=== PATIENT | female | born 1955 | race Caucasian/White ===

== ENCOUNTER 2018-11-08 06:41 | Observation (INO) | payer OTHER ==
--- NOTE | 2018-11-08 07:43 | RAD ---
Portable chest: HISTORY: Chest pain COMPARISON: none FINDINGS: Lung morgan are clear. Heart and mediastinum appear unremarkable. Vascularity is normal. Visualized osseous structures unremarkable. IMPRESSION: No acute finding
[2018-11-08 07:55] LABS: #Basophils 0.1 thou/uL (0.0-0.2); #Lymphocytes 1.4 thou/uL (1.20-3.40); #Monocytes 0.5 thou/uL (0.11-0.59); #Neutrophils 7.1 thou/uL (1.40-6.50); %Basophils 0.7 % (0.0-1.0); %Eosinophils 0.3 % (0.0-10.0); %Lymphocytes 15.1 % (21.0-51.0); %Monocytes 5.5 % (0.0-10.0); %Neutrophils 78.5 % (42.0-75.0); Hemoglobin 13.3 g/dL (12.0-16.0); Mean Corpuscular Hemoglobin 30.3 pg (27.0-31.0); Mean Corpuscular Volume 91.9 fL (78.0-98.0); Mean Platelet Volume 8.7 fL (7.4-10.4); Platelet Count 189 thou/uL (130-400); RBC Distribution Width 11.6 % (11.5-14.5); Red Blood Cell (RBC) Count 4.39 mill/uL (4.20-5.40)
[2018-11-08] MEDS ORDERED: Morphine 4 MG/ML VIAL ONE (08:08)
[2018-11-08] MEDS ORDERED: Ondansetron PF 4 MG/2 ML Vial ONE ×2 (08:09→18:56)
[2018-11-08 08:17] LABS: ALT (SGPT) 13 U/L (8-55); AST (SGOT) 17 U/L (5-34); Albumin 4.5 g/dL (3.4-4.8); Alkaline Phosphatase 79 U/L (40-150); Anion Gap 15 mmol/L (10-20); BUN (Urea Nitrogen) 18 mg/dL (9.8-20.1); Bilirubin, Total 0.5 mg/dL (0.2-1.2); CK (CPK) 59 U/L (29-168); Calc. Creatinine Clearance 0 mL/min (70-130); Calcium 10.4 mg/dL (7.8-10.44); Carbon Dioxide 24 mmol/L (23-31); Chloride 104 mmol/L (98-107); Estimated GFR-MDRD 61; Globulin 2.8 g/dL (2.4-3.5); Glucose 123 mg/dL (80-115); Lipase 11 U/L (8-78); Potassium 3.8 mmol/L (3.5-5.1); Protein, Total 7.3 g/dL (6.0-8.3); Sodium 139 mmol/L (136-145)
--- NOTE | 2018-11-08 08:55 | ULT ---
EXAM: US Gallbladder RUQ CLINICAL HISTORY: Abdominal pain. Chest pain. Back pain.. COMPARISON: None. FINDINGS: Pancreas: Obscured by bowel gas Liver:Anechoic focus with septation involving the left hepatic lobe measuring 9.6 x 7.1 x 8.0 cm. Add itional smaller septated anechoic focus measuring 2.0 x 1.0 x 1.5 cm, in the left hepatic lobe. Septated cysts are favored. No solid masses in the liver. Contour of the hepatic margins maintained. Right hepatic lobe measures 12.7 cm Gallbladder: No evidence of gallbladder wall thickening or pericholecystic fluid. Small amount of slu dge is noted. No evidence of cholelithiasis. Gallbladder measures 11.4 cm in maximum dimension Garcia's sign:Negative Bile ducts: Common bile duct diameter is 0.4 cm Portal vein is patent. Appropriate directional flow Right kidney: No hydronephrosis Right kidney measuring 9.6 x 4.6 x 4.4 cm in length. IMPRESSION: 1. Distended gallbladder without sonographic evidence of cholelithiasis or cholecystitis. 2. Complex, septated cyst in the left hepatic lobe.
[2018-11-08] MEDS ORDERED: Fentanyl 100 MCG/2 ML VIAL ONE (09:17)
[2018-11-08] MEDS ORDERED: Morphine 2 MG/ML SYRINGE ONE (15:10)
--- NOTE | 2018-11-08 16:21 | NM ---
Radionucleotide hepatobiliary scan HISTORY: Right upper quadrant pain. Distended gallbladder. FINDINGS: Early images show uptake within the liver with the exception of the gallbladder fossa. Ther e is increase in uptake surrounding the gallbladder fossa along the inferior margin. This is consistent with a round sign of inflammation. At 1 hour, patient was given 2 mg morphine IV. Imaging was carried for another 90 minutes. Uptake is never seen within the gallbladder. Uptake is first seen within the small bowel at 10 minutes. IMPRESSION: Cystic duct obstruction with findings suggestive of acute cholecystitis.
[2018-11-08 16:59] LABS: Troponin I Less than 0.010 ng/mL (< 0.028)
[2018-11-08] MEDS ORDERED: Dextrose 5% in Water 1,000 ML IV PRN (17:56)
[2018-11-08] MEDS ORDERED: Promethazine HCl 25 MG/ML VIAL IM PRN (17:56)
[2018-11-08] MEDS ORDERED: Dextrose 50% Abboject 50 ML SYRINGE SLOW IVP PRN (17:56)
[2018-11-08] MEDS ORDERED: Calcium Carbonate 500 MG ChewTAB PO PRN (17:56)
[2018-11-08] MEDS ORDERED: Mag-Al 1200 mg/1200 mg/30 ML UDCUP PO PRN (17:56)
[2018-11-08] MEDS ORDERED: Ondansetron PF 4 MG/2 ML Vial IVP PRN (17:56)
[2018-11-08] MEDS ORDERED: hydrALAZINE 20 MG/ML VIAL SLOW IVP PRN (17:56)
[2018-11-08] MEDS ORDERED: Piperacillin/Tazobactam 3.375 GM in Sodium Chloride 0.9% 100 ML IVPB SCH (18:00)
[2018-11-08] MEDS ORDERED: Ketorolac Tromethamine 30 MG/ML VIAL ONE (18:55)
[2018-11-08] MEDS ORDERED: Promethazine HCl 25 MG/ML VIAL ONE (18:55)
[2018-11-08] MEDS: Ketorolac Tromethamine 30 MG/ML VIAL IVP SCH (18:57)
[2018-11-08] MEDS: Acetaminophen 1,000 MG in Premix Bag 1 BAG IVPB SCH (18:59)
--- NOTE | 2018-11-08 19:06 | HP ---
REQUESTING PHYSICIAN: Dr. Denney. ATTENDING SURGEON: Sincere Montes DO HISTORY OF PRESENT ILLNESS: The patient is a 63-year-old woman, who presented to the emergency department after an acute onset of right upper quadrant pain. The patient reports that she has had similar episodes approximately four prior to this that have become longer in duration and more intense. The patient was seen by Cardiology after one episode to rule out a cardiac etiology, which was negative. Today, she presented again after having eaten and having significant right upper quadrant pain. She denies any vomiting or diarrhea, but did have some nausea and denies fevers or chills. The patient underwent evaluation in the emergency department, had essentially unremarkable right upper quadrant ultrasound, underwent HIDA scan that was consistent with acute cholecystitis at which time we were asked to admit the patient and evaluate her for cholecystectomy. ALLERGIES: ASPIRIN AND PENICILLIN. CURRENT MEDICATIONS: 1. Benicar. 2. Pravastatin. PAST MEDICAL HISTORY: Davis's palsy, hypercholesterolemia, hypertension. PAST SURGICAL HISTORY: , uterine ablation. SOCIAL HISTORY: The patient lives at home with her spouse. Denies drug, tobacco, or alcohol use. FAMILY MEDICAL HISTORY: Renal disease and renal carcinoma. REVIEW OF SYMPTOMS: 10-point review of systems is negative as otherwise stated. PHYSICAL EXAMINATION: VITAL SIGNS: Blood pressure 121/87, heart rate 91, respirations 20, oxygen saturation 93% on room air, and temperature is 99.2. GENERAL: The patient is resting comfortably in bed. She has just been given pain medication. She is awake, alert, and oriented x3. HEENT. Head: Normocephalic atraumatic. Eyes, extraocular motion intact, no scleral icterus. PERRLA bilaterally. Ears are atraumatic without discharge. Nose atraumatic without discharge. Oropharynx is clear. NECK: Nontender. Trachea is midline. No JVD. No lymphadenopathy is noted. LUNGS: Clear to auscultation with good inspiratory and expiratory effort. HEART: Regular rate and rhythm. ABDOMEN: Soft, flat with tenderness to palpation to the right upper quadrant and a positive Garcia sign. EXTREMITIES: Neurovascularly intact x4. BACK: Atraumatic and nontender. No CVA tenderness. LABORATORY EXAM: White blood cell count 9.0, hemoglobin 13.3, hematocrit 40.3, platelets 189. Sodium 139, potassium 3.8, chloride 104, CO2 of 24, BUN 18, creatinine 0.94, glucose 123, total bilirubin 0.5, AST 17, ALT 13, alkaline phosphatase 79, CK 59, troponin with repeat both less than 0.010. Lipase 11. RADIOGRAPHIC EXAM: AP chest x-ray shows lung morgan are clear. Heart, mediastinum appear unremarkable. Vascularity is normal. No acute finding. Abdominal ultrasound shows a distended gallbladder without sonographic evidence of cholelithiasis or cholecystitis. Incidental finding of a complex septated cyst in the left hepatic lobe. Common bile duct measures 0.4 cm. The gallbladder's maximum dimension is 11.4 cm. There is no evidence of gallbladder wall thickening or pericholecystic fluid. HIDA scan shows cystic duct obstruction with findings suggestive of acute cholecystitis. ASSESSMENT AND PLAN: 1. Abdominal pain. 2. Acalculous cholecystitis. Plan will be to admit the patient to the surgical floor. We will make her n.p.o. after midnight, IV pain control, pulmonary toilet, gastritis and mechanical VTE prophylaxis with a plan to take her to the operating room for laparoscopic cholecystectomy tomorrow. The evaluation, examination, laboratory, and radiographic findings were discussed with Dr. Montes prior to this dictation. Job ID: [id number]
[2018-11-08] MEDS ORDERED: Famotidine 20 MG TAB PO SCH (21:00)
[2018-11-08] MEDS: Lactated Ringer's 1,000 ML IV SCH (21:04)
[2018-11-08] MEDS: Famotidine/PF 20 mg/2ml Vial SLOW IVP SCH (21:05)
[2018-11-09] MEDS: Acetaminophen 1,000 MG in Premix Bag 1 BAG IVPB SCH ×3 (02:02→13:45)
[2018-11-09] MEDS: Ketorolac Tromethamine 30 MG/ML VIAL IVP SCH ×2 (02:02→07:54)
[2018-11-09 03:34] VITALS: BMI 25.6
[2018-11-09] MEDS: Lactated Ringer's 1,000 ML IV SCH ×2 (05:37→12:07)
[2018-11-09 06:37] LABS: #Eosinphils 0.1 thou/uL (0.0-0.7); #Lymphocytes 2.3 thou/uL (1.20-3.40); #Monocytes 0.9 thou/uL (0.11-0.59); #Neutrophils 4.9 thou/uL (1.40-6.50); %Basophils 0.2 % (0.0-1.0); %Eosinophils 1.1 % (0.0-10.0); %Monocytes 10.9 % (0.0-10.0); %Neutrophils 59.8 % (42.0-75.0); Hemoglobin 12.3 g/dL (12.0-16.0); Mean Corpuscular HGB CONC 30.7 g/dL (32.0-36.0); Mean Corpuscular Hemoglobin 28.8 pg (27.0-31.0); Mean Corpuscular Volume 93.8 fL (78.0-98.0); Mean Platelet Volume 8.5 fL (7.4-10.4); Platelet Count 190 thou/uL (130-400); RBC Distribution Width 11.9 % (11.5-14.5); Red Blood Cell (RBC) Count 4.27 mill/uL (4.20-5.40); White Blood Cell (WBC) Count 8.2 thou/uL (4.8-10.8)
[2018-11-09 07:06] LABS: ALT (SGPT) 18 U/L (8-55); AST (SGOT) 19 U/L (5-34); Alkaline Phosphatase 65 U/L (40-150); Anion Gap 12 mmol/L (10-20); BUN (Urea Nitrogen) 16 mg/dL (9.8-20.1); Bilirubin, Total 1.2 mg/dL (0.2-1.2); Calc. Creatinine Clearance 66 mL/min (70-130); Calcium 9.7 mg/dL (7.8-10.44); Carbon Dioxide 28 mmol/L (23-31); Chloride 103 mmol/L (98-107); Estimated GFR-MDRD 57; Globulin 2.7 g/dL (2.4-3.5); Glucose 96 mg/dL (80-115); Potassium 3.9 mmol/L (3.5-5.1); Protein, Total 6.7 g/dL (6.0-8.3); Sodium 139 mmol/L (136-145)
[2018-11-09] MEDS ORDERED: Ketorolac Tromethamine 30 MG/ML VIAL ONE (07:38)
[2018-11-09] MEDS: Famotidine/PF 20 mg/2ml Vial SLOW IVP SCH (07:55)
[2018-11-09] MEDS ORDERED: cefOXitin 2 GM VIAL ONE (08:10)
[2018-11-09] MEDS ORDERED: Sodium Chloride 0.9% 100 ML ONE (08:10)
[2018-11-09] MEDS ORDERED: Bupivacaine/Epinephrine 0.25% 30 ML VIAL ONE (08:20)
[2018-11-09] MEDS ORDERED: Iothalamate Meglumine 60% 50 ML VIAL FS ONE (08:21)
[2018-11-09] MEDS ORDERED: Fentanyl 100 MCG/2 ML VIAL ONE (08:35)
[2018-11-09] MEDS ORDERED: Scopolamine 1.5 mg/72 hour Patch ONE (08:53)
[2018-11-09] MEDS ORDERED: Promethazine HCl 25 MG/ML VIAL ONE (08:57)
[2018-11-09] MEDS ORDERED: traMADol HCl 50 MG TAB PO PRN ×2 (10:36)
[2018-11-09] MEDS ORDERED: Promethazine HCl 25 MG/ML VIAL SLOW IVP PRN (10:49)
[2018-11-09] MEDS ORDERED: Promethazine HCl 25 MG/ML VIAL IM PRN (10:49)
[2018-11-09] MEDS ORDERED: Ondansetron HCl/PF 4 MG/2 ML Vial IVP PRN (10:49)
[2018-11-09] MEDS ORDERED: Acetaminophen 500 MG TAB PO SCH (12:00)
--- NOTE | 2018-11-09 12:18 | OP ---
DATE OF PROCEDURE: 11/09/2018 PREOPERATIVE DIAGNOSIS: Acute acalculous cholecystitis. POSTOPERATIVE DIAGNOSIS: Acute cholecystitis with cholelithiasis. OPERATION PERFORMED: Laparoscopic cholecystectomy. ANESTHESIA: General endotracheal. ESTIMATED BLOOD LOSS: 25 mL. FLUIDS GIVEN: 800 mL crystalloids. COUNTS: Sponge and instrument counts were verified as correct x2. COMPLICATIONS: None apparent at the time of operation. INDICATIONS FOR OPERATION: A 63-year-old woman presented with recurrent epigastric right upper quadrant abdominal pain. Clinical radiographic examination was consistent with acute acalculous cholecystitis, for which the patient was brought to the operating room for cholecystectomy. FINDINGS: However, consistent with dilated gallbladder in the usual anatomic location partially encased by omental adhesions. The gallbladder itself also contained stones. DESCRIPTION OF PROCEDURE: Informed consent obtained from the patient. She was brought to the operating room and placed in supine position. Following general anesthesia, abdomen was sterilely prepped and draped in usual fashion. Skin below the umbilicus was infiltrated with 0.25% Marcaine with epinephrine. A small curvilinear infraumbilical incision was made using 11-scalpel. Umbilical stalk was grasped with Rocio and elevated. Veress needle was inserted through the incision and placed in the peritoneal cavity through which the abdomen was insufflated with 3 L of CO2 gas. Intra-abdominal pressure noted at 1 mmHg. Following abdominal insufflation, Veress needle was removed and a 5 mm trocar introduced using a Visiport under laparoscopy. Laparoscopy confirmed proper placement of the port, no injuries to underlying structures. Additional laparoscopy revealed the right upper quadrant completely obscured by omental adhesions. Under direct laparoscopy, 12 mm epigastric and two 5 mm right lateral subcostal ports were placed after the overlying skin were infiltrated with 0.25% Marcaine with epinephrine and appropriate incision was made. The patient was placed in a reverse Trendelenburg position, rotated to her left. I introduced a [place] dissector with cautery using this to take down omental adhesions to expose the fundus of the gallbladder. A Prestige grasper was introduced through the right lateral subcostal port grasping the fundus of the gallbladder which was elevated cephalad. Omental adhesions were taken down from remainder of the gallbladder. Second Prestige grasper was introduced through the right medial subcostal port grasping the Bertha pouch, which was retracted laterally. Cystic duct was dissected free from surrounding structures at the triangle of Calot. The duct was divided between clips applying 2 clips proximally, 1 clip at the junction of the cystic duct and gallbladder. Cystic artery was dissected free from surrounding structures and divided between clips in a similar fashion. Gallbladder itself was removed from the liver bed using cautery. Gallbladder was delivered of the abdominal cavity using an EndoCatch. Operative site was inspected. Gallbladder fossa was oozy of venous blood. Hemostasis was readily achieved using 1 x 2-inch piece of Fibrillar. Finding no other pathology, laparoscopy was terminated. Fascia of the epigastric port was closed using 0 Vicryl suture and Endoclosure device on the laparoscopy. Abdomen was desufflated. All ports and instruments were removed and accounted for. Skin incision was closed using 4-0 Monocryl suture in subcuticular fashion. Dermabond was applied over incisional closure. The patient tolerated the operation without any apparent complication and was returned to recovery room in satisfactory condition. Job ID: [id number]
[2018-11-09] MEDS ORDERED: Dexamethasone 20 MG/5 ML VIAL ONE (16:50)
[2018-11-09] MEDS ORDERED: Lidocaine 1% PF 5 ML VIAL ONE (16:50)
[2018-11-09] MEDS ORDERED: Rocuronium Bromide 10 MG/ML (10ML VIAL) ONE (16:50)
[2018-11-09] MEDS ORDERED: Metoprolol Tartrate 5 MG/5 ML VIAL ONE (16:50)
[2018-11-09] MEDS ORDERED: Glycopyrrolate 0.2 MG/ML 5 ML SYRINGE ONE (16:50)
[2018-11-09] MEDS ORDERED: PROPOFOL 200 MG/20 ML VIAL ONE (16:50)
[2018-11-09] MEDS ORDERED: Ondansetron PF 4 MG/2 ML Vial ONE (16:50)
[2018-11-09 17:52] VITALS: BP 115/55; TEMP 97.7
[2018-11-10] MEDS ORDERED: Acetaminophen 325 MG TAB PO PRN (01:00)
--- NOTE | 2018-11-10 02:09 | DIS ---
DATE OF ADMISSION: 11/08/2018 DATE OF DISCHARGE: 11/09/2018 ADMITTING DIAGNOSIS: Acute acalculous cholecystitis. DISCHARGE DIAGNOSES: Acute cholecystitis with cholelithiasis. OPERATION PERFORMED: Laparoscopic cholecystectomy. HISTORY AND HOSPITAL COURSE: A 63-year-old woman presented with recurrent epigastric right upper quadrant abdominal pain. Clinical and radiographic examination were consistent with acute acalculous cholecystitis. The patient was taken to the operating room for cholecystectomy. Findings in surgery were consistent with gallstones and acute cholecystitis. Following an uneventful surgery, patient was returned to surgical floor. Hours later, she is ambulating with minimum difficulty. She is tolerating clear liquid diet. Pain is adequately controlled on oral analgesics. Incisional wounds remain intact, clean, and dry. The patient will be discharged home today with the following instructions: She is to resume all pre-hospital medications as prescribed by her primary care physician. Additionally, she may take Tylenol 1000 mg p.o. q.6 hours alternating this with ibuprofen 600 mg p.o. q.8 hours p.r.n. pain. She is also given a prescription for tramadol 50 mg #30 to be taken 1 to 2 p.o. q.6 hours p.r.n. pain. She is to avoid weight lifting in excess of 20 pounds until she has been released by me. She may shower effective tomorrow. She is to avoid soaking herself in a bathtub or swimming until she has been released by me. The patient is to follow up with me on November 22 at 10:45 a.m. She is to call with any questions or problems in the interim, including exacerbation of abdominal pain, intolerance to oral intake, drainage from the incisional wounds or fever in excess of 101 degrees Fahrenheit. Above instructions were given to the patient and her who indicated understanding of information given. I have answered their questions. Job ID: [id number]
[2018-11-10] MEDS ORDERED: Acetaminophen 500 MG TAB PO SCH (06:00)
--- NOTE | 2018-11-10 19:39 | EKG ---
Test Reason : CP, BACK PAIN, ABD P Blood Pressure : / mmHG Vent. Rate : 051 BPM Atrial Rate : 051 BPM P-R Int : 124 ms QRS Dur : 076 ms QT Int : 462 ms P-R-T Axes : 056 -07 052 degrees QTc Int : 425 ms Sinus bradycardia Otherwise normal ECG Confirmed by LISA KARIMI DO ([id number]), primer expeditor and drier SHORTY NAILS ([id number]) on 11/10/2018 7:37:29 PM Referred By: Confirmed By:LISA KARIMI DO
== END 2018-11-09 15:59 | disposition home or self-care (01) ==
LOC: ERS 06:41 → ERHOLD 17:40 → SURG A 19:59
PROVIDERS: ADMIT Surgery; ATTEND Surgery
PROC: 0FT44ZZ Resection of Gallbladder, Percutaneous Endoscopic Approach (ICD-10-PCS; principal; 2018-11-09)
DX: K80.00 Calculus of gallbladder with acute cholecystitis without obstruction (principal); K21.9 Gastro-esophageal reflux disease without esophagitis; E78.00 Pure hypercholesterolemia, unspecified; G51.0 Bell's palsy; Z79.899 Other long term (current) drug therapy; Z88.0 Allergy status to penicillin; Z88.8 Allergy status to other drugs, medicaments and biological substances
CPT/HCPCS: 36415; 71045; 76705; 78227; 80053; 82550; 83690; 84484; 85025; 88304; 93005; 96361; 96374; 96375; 96376; A9537; G0378; J0131; J0694; J1100; J1610; J1885; J2001; J2270; J2405; J2550; J2704; J3010; J3490; Q9961